=== PATIENT | female | born 1995 | race Caucasian/White ===

== ENCOUNTER → 2019-08-07 | Outpatient (CLI) | payer MEDICAID ==
--- NOTE | 2019-08-07 15:46 | RADIOLOGY REPORT (SQ) ---
EXAM DESCRIPTION: U/S [id number] TRNABD 1GES W/ODOP COMPLETED DATE/TIME: 08/07/2019 3:10 pm REASON FOR STUDY: Z34.81 ENCOUNTER FOR SUPRVSN OF NORMAL , FIRST TRIMESTER Z34.81 ENCOUNTE R FOR SUPRVSN OF NORMAL , FIRST TRIM COMPARISON: None. TECHNIQUE: Transvaginal static and realtime grayscale images acquired of the pelvis. Additional carolina cted spectral and color Doppler images recorded. All images stored on PACs. CG: Not available. CLINICAL DATES: LMP 05/29/2019. 10 weeks 0 days. LIMITATIONS: None. FINDINGS: FETUS: Single Living intrauterine . ULTRASOUND EGA: 5 weeks 6 days. ULTRASOUND RACHEL: 04/02/2020 EFW: Not applicable less than 20 weeks. CRL: 0.31 cm FHR: 73 beats per minute. SURVEY: Too early to assess. AMNIOTIC FLUID: Adequate amount. PLACENTA: Not yet developed due to early gestation. SUBCHORIONIC BLEED: No SIZE OF BLEED: Not applicable. UTERUS: No masses. No anomalies. CERVICAL LENGTH: 2.4 cm. Closed. RIGHT ADNEXA: Normal ovary with normal vascular flow. 3.5 x 2.3 x 1.9 cm. There is a complex cystic area measuring 18 mm. No adnexal free fluid. No adnexal masses. LEFT ADNEXA: Normal ovary with normal vascular flow. 2.1 x 1.5 x 1.9 cm. No adnexal free fluid. No adnexal masses. FREE FLUID: None. OTHER: No other significant finding. IMPRESSION: Intrauterine with low heart rate. EGA 5 weeks 6 days. Trimester of : First trimester - 0 to 13 weeks. TECHNICAL DOCUMENTATION: JOB ID: [id number] [employer]- All Rights Reserved rev-12/02 Reading location - IP/workstation name: [email or web address]
== END ==
LOC: RAD 14:26
PROVIDERS: ATTEND Midwife
DX: Z34.81 Encounter for supervision of other normal pregnancy, first trimester (principal)
CPT/HCPCS: 76801

== ENCOUNTER 2019-09-10 10:14 | Emergency (ER) | payer MEDICAID ==
[2019-09-10 10:44] VITALS: BP 127/72
--- NOTE | 2019-09-10 11:03 | ER Document Report ---
ED Medical Screen (RME) - General Chief Complaint: Chest Pain Stated Complaint: CHEST PAIN Time Seen by Provider: 09/10/19 10:47 Primary Care Provider: VIVIANE ALBARADO CNM [Primary Care Provider] - Follow up as needed Notes: Patient is a 24-year-old female who presents to the emergency department with a chief complaint of chest pain. Patient is 11 weeks . The pain is in the left side of her chest. Describes as a sharp pain. She also felt random sharp pains in her entire body. Patient does not know if she has any family history of heart attack at a young age. Exam: Sinus rhythm on twelve-lead EKG. S1, S2. Clear breath sounds throughout. I have greeted and performed a rapid initial assessment of this patient. A comprehensive ED assessment and evaluation of the patient, analysis of test results and completion of medical decision making process will be conducted by an additional ED providers. TRAVEL OUTSIDE OF THE [place] IN LAST 30 DAYS: No - Related Data Allergies/Adverse Reactions: No Known Allergies Allergy (Verified 09/10/19 10:46) Home Medications: prenatals Past Medical History - Social History Frequency of alcohol use: None Drug Abuse: None Physical Exam - Vital signs Vitals: Temp Pulse Resp BP Pulse Ox 98.7 F 72 17 127/72 H 98 09/10/19 10:42 09/10/19 10:42 09/10/19 10:42 09/10/19 10:42 09/10/19 10:42 Course - Vital Signs Vital signs: Temp Pulse Resp BP Pulse Ox 98.7 F 72 17 127/72 H 98 09/10/19 10:42 09/10/19 10:42 09/10/19 10:42 09/10/19 10:42 09/10/19 10:42 Doctor's Discharge - Discharge Referrals: VIVIANE ALBARADO CNM [Primary Care Provider] - Follow up as needed
[2019-09-10 11:41] LABS: ABSOLUTE EOSINOPHILS # (AUTO) 0.1 10^3/uL (0.0-0.6); ABSOLUTE LYMPHOCYTES (AUTO) 2.1 10^3/uL (0.5-4.7); ABSOLUTE MONOCYTES (AUTO) 0.5 10^3/uL (0.1-1.4); ABSOLUTE NEUT (AUTO) 6.9 10^3/uL (1.7-8.2); BASOPHILS % (AUTO) 0.2 % (0-2); HEMATOCRIT 39.7 % (36.0-47.0); HEMOGLOBIN 13.6 g/dL (12.0-15.5); LYMPHOCYTES % (AUTO) 21.7 % (13-45); MEAN CORPUSCULAR HEMOGLOBIN 29.3 pg (27.0-33.4); MEAN CORPUSCULAR HGB CONC 34.4 g/dL (32.0-36.0); MEAN CORPUSCULAR VOLUME 85 fl (80-97); MONOCYTES % (AUTO) 5.2 % (3-13); PLATELET COUNT 266 10^3/uL (150-450); RED BLOOD COUNT 4.66 10^6/uL (3.72-5.28); RED CELL DISTRIBUTION WIDTH 14.7 % (11.5-14.0); SEGMENTED NEUTROPHILS % (AUTO) 71.9 % (42-78); TOTAL CELLS COUNTED % (AUTO) 100 %; WHITE BLOOD COUNT 9.7 10^3/uL (4.0-10.5)
--- NOTE | 2019-09-10 11:52 | RADIOLOGY REPORT (SQ) ---
EXAM DESCRIPTION: CHEST SINGLE VIEW COMPLETED DATE/TIME: 09/10/2019 11:42 am REASON FOR STUDY: chest pain COMPARISON: None. EXAM PARAMETERS: NUMBER OF VIEWS: One view. TECHNIQUE: An AP view of the chest was obtained. RADIATION DOSE: NA LIMITATIONS: None. FINDINGS: LUNGS AND PLEURA: No consolidation, pleural effusion or pneumothorax. MEDIASTINUM AND HILAR STRUCTURES: No mediastinal or hilar contour abnormality. HEART AND VASCULAR STRUCTURES: The cardiac silhouette and pulmonary vasculature are within normal main its. BONES: No acute findings. HARDWARE: None in the chest. OTHER: No other finding. IMPRESSION: No acute cardiopulmonary process. TECHNICAL DOCUMENTATION: JOB ID: [id number] 2010 [employer]- All Rights Reserved Reading location - IP/workstation name: [email or web address]
[2019-09-10 11:56] LABS: ALBUMIN 4.3 g/dL (3.5-5.0); ALKALINE PHOSPHATASE 64 U/L (38-126); ANION GAP 8 (5-19); ASPARTATE AMINO TRANSFERASE 16 U/L (14-36); BILIRUBIN,TOTAL 0.4 mg/dL (0.2-1.3); BLOOD UREA NITROGEN 9 mg/dL (7-20); CARBON DIOXIDE 26 mmol/L (22-30); CHLORIDE 101 mmol/L (98-107); GLUCOSE 85 mg/dL (75-110); POTASSIUM 4.4 mmol/L (3.6-5.0); TOTAL PROTEIN 7.9 g/dL (6.3-8.2)
--- NOTE | 2019-09-10 14:59 | ER Document Report ---
ED General - General Chief Complaint: Chest Pain Stated Complaint: CHEST PAIN Time Seen by Provider: 09/10/19 10:47 Primary Care Provider: VIVIANE ALBARADO CNM [NO LOCAL MD] - Follow up as needed Mode of Arrival: Ambulatory Information source: Patient TRAVEL OUTSIDE OF THE [place] IN LAST 30 DAYS: No - HPI Notes: Patient presents with chest pain. She states this woke her up from sleep this morning. It does feel better now. She states her chest felt tight and she felt somewhat short of breath. She states she has been getting this regularly in the mornings the last several days. She states she is currently 11 weeks . She has no significant past medical history or surgeries. She has never had a blood clot. There is no family history of blood clots and mother father brother sisters. She is not a smoker. She has had no leg swelling. She has had no significant cough or cold. Her chest pain was intermittent. It was a tight sensation. It was mild to moderate. Nothing made it better or worse. It did not radiate. - Related Data Allergies/Adverse Reactions: No Known Allergies Allergy (Verified 09/10/19 10:46) Home Medications: prenatals Past Medical History - General Information source: Patient - Social History Smoking Status: Never Smoker Frequency of alcohol use: None Drug Abuse: None Family History: Reviewed & Not Pertinent Patient has suicidal ideation: No Patient has homicidal ideation: No Review of Systems - Review of Systems Constitutional: denies: Chills, Fever Cardiovascular: Chest pain. denies: Palpitations Respiratory: Cough, Short of breath -: Yes All other systems reviewed and negative Physical Exam - Vital signs Vitals: Temp Pulse Resp BP Pulse Ox 98.7 F 72 17 127/72 H 98 09/10/19 10:42 09/10/19 10:42 09/10/19 10:42 09/10/19 10:42 09/10/19 10:42 Interpretation: Normal - General General appearance: Appears well, Alert - HEENT Head: Normocephalic, Atraumatic Eyes: Normal Pupils: PERRL - Respiratory Respiratory status: No respiratory distress Chest status: Nontender Breath sounds: Normal Chest palpation: Normal - Cardiovascular Rhythm: Regular Heart sounds: Normal auscultation Murmur: No - Abdominal Inspection: Normal Distension: No distension Bowel sounds: Normal Tenderness: Nontender Organomegaly: No organomegaly - Back Back: Normal, Nontender - Extremities General upper extremity: Normal inspection, Nontender, Normal color, Normal ROM, Normal temperature General lower extremity: Normal inspection, Nontender, Normal color, Normal ROM, Normal temperature, Normal weight bearing. No: Nany's sign - Neurological Neuro grossly intact: Yes Cognition: Normal Orientation: AAOx4 Elliott Coma Scale Eye Opening: Spontaneous [place] Coma Scale Verbal: Oriented [place] Coma Scale Motor: Obeys Commands [place] Coma Scale Total: 15 Speech: Normal Motor strength normal: LUE, RUE, LLE, RLE Sensory: Normal - Psychological Associated symptoms: Normal affect, Normal mood - Skin Skin Temperature: Warm Skin Moisture: Dry Skin Color: Normal Course - Re-evaluation Re-evalutation: 09/10/19 15:00 Patient presents with shortness of breath and chest pain. I feel the clinical presentation is most consistent with reflux as it occurs every morning only. Patient does not have any signs on EKG such as an S1Q3T3, of a pulmonary embolism. Patient does not have any unilateral leg swelling. She has no family history or known clotting disorders. There is no evidence that this is cardiac in nature. I have instructed the patient on some things she can do to address reflux and to follow-up with her SILVERING APPLICATOR. - Vital Signs Vital signs: Temp Pulse Resp BP Pulse Ox 98.7 F 72 17 127/72 H 98 09/10/19 10:42 09/10/19 10:42 09/10/19 10:42 09/10/19 10:42 09/10/19 10:42 - Laboratory Result Diagrams: 09/10/19 11:22 09/10/19 11:22 Laboratory results interpreted by me: 09/10/19 09/10/19 11:22 11:22 RDW 14.7 H Sodium 134.9 L - Diagnostic Test Radiology reviewed: Image reviewed, Reports reviewed - EKG Interpretation by Me EKG shows normal: Sinus rhythm Rate: Normal - 76 Rhythm: NSR [place]/QRS: No: Right axis deviation, Left axis deviation Discharge - Discharge Clinical Impression: Chest pain Qualifiers: Chest pain type: unspecified Qualified Code(s): R07.9 - Chest pain, unspecified Condition: Stable Disposition: HOME, SELF-CARE Instructions: Chest Pain of Unclear Cause ([facility]) Additional Instructions: Please follow-up with your SILVERING APPLICATOR as soon as possible. Forms: Return to Work Referrals: DERIK MUIR MD [ACTIVE STAFF] - Follow up in 1 week
--- NOTE | 2019-09-10 18:12 | EKG REPORT ---
SEVERITY:- NORMAL ECG - SINUS RHYTHM : Confirmed by: Racheal Alegria MD 10-Sep-2019 18:11:59
== END 2019-09-10 15:13 | disposition home or self-care (01) ==
LOC: ER 10:14
DX: O26.891 Other specified pregnancy related conditions, first trimester (principal); R07.9 Chest pain, unspecified; R06.02 Shortness of breath; Z3A.11 11 weeks gestation of pregnancy
CPT/HCPCS: 36415; 71045; 80053; 83735; 84484; 85025; 93005; 93010; 99285

== ENCOUNTER 2020-03-26 04:55 | Inpatient (IN) | payer MEDICAID ==
[2020-03-26 05:32] LABS: APPEARANCE,URINE SLIGHTLY-CLOUDY; BILIRUBIN,URINE NEGATIVE (NEGATIVE); COLOR,URINE YELLOW; GLUCOSE, URINE NEGATIVE (NEGATIVE); KETONES,URINE NEGATIVE (NEGATIVE); LEUKOCYTE ESTERASE,URINE NEGATIVE (NEGATIVE); NITRITE,URINE NEGATIVE (NEGATIVE); PROTEIN,URINE NEGATIVE (NEGATIVE); UROBILINOGEN,URINE NEGATIVE mg/dL (<2.0)
[2020-03-26] MEDS ORDERED: RINGERS SOLUTION,LACTATED 1,000 ML IV PRN (05:46)
[2020-03-26] MEDS ORDERED: RINGERS SOLUTION,LACTATED 1,000 ML IV ONE (05:46)
[2020-03-26 05:54] LABS: URINE AMPHETAMINES SCREEN NEGATIVE; URINE BARBITURATES SCREEN NEGATIVE; URINE BENZODIAZEPINES SCREEN NEGATIVE; URINE COCAINE SCREEN NEGATIVE; URINE MARIJUANA (THC) SCREEN NEGATIVE; URINE METHADONE SCREEN NEGATIVE; URINE PHENCYCLIDINE SCREEN NEGATIVE
[2020-03-26] MEDS ORDERED: CEFAZOLIN 2 GM/D5W RTU 2 GM/50 ML RTUPB IV PRN (06:00)
--- NOTE | 2020-03-26 06:19 | Admission Physical ---
Datetime Report Generated by CPN: 03/26/2020 06:19 CURRENT ADMISSION Chief Complaint: Suspected Ruptured Membranes Indication for Induction: Not Applicable Admit Impression : Term, Intrauterine ; Ruptured Membranes; Primary Section Admit Impression- Other: breech presentation verified by bedside ultrasound performed by me ALLERGIES Medication Allergies: No Medication Allergies: No Known Allergies (09/10/2019) Latex: No Latex Allergies Food Allergies: no Environmental Allergies: pollon pet dansder OBSTETRICAL HISTORY EDC: 04/02/2020 00:00 : 2 Para: 0 Term: 0 : 0 SAB: 1 IAB: 0 Ectopic: 0 Livin Cesareans: 0 VBACs: 0 Multiple Births: 0 Gestational Diabetes: No Rh Sensitization: No Incompetent Cervix: No BRENDON: No Infertility: No ART Treatment: No IUGR: No Hx Previous C/S: No Macrosomia: No Hx Loss/Stillborn: No PIH: No Hx : No Placenta Previa/Abruption: No Depression/PP Depression: No PTL/PROM: No Post Hemorrhage: No Current Procedures: Ultrasound SEE RECORDS Alcohol: No Marijuana : No Cocaine: No Other Illicit Drugs: No Cigarettes: Never Smoker. 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 Surgery: No Heart Disease: No Hosp/Surgery: No Autoimmune Disorder: No Anesthetic Complications: No Kidney Disease: Yes Abnormal Pap Smear: No Neuro/Epilepsy: No Psychiatric Disorders: Yes Other Medical Diseases: No Hepatitis/Liver Disease: No Significant Family History: No Varicosities/Phlebitis: No Trauma/Violence : No Thyroid Dysfunction: No Medical History Comments: kidney infection 2015/anxiety aug 2018/asthma as a child/wisdom teeth removed 2010 INFECTIOUS HISTORY Gonorrhea: No Genital Herpes: No Chlamydia: Yes Tuberculosis: No Syphilis: No Hepatitis: No HIV/AIDS Exposure: No Rash or Viral Illness: No HPV: No Infectious History Comments: chlymasia 2017 PHYSICAL EXAM General: Normal HEENT: Normal Neurologic: Normal Thyroid: Normal Heart: Normal Lungs: Normal Breast: Normal Back: Normal Abdomen: Normal Genitourinary Exam: Normal Extremities: Normal DTRs: Normal Pelvic Type: Adequate Vital Signs: Reviewed MEMBRANES Pooling: Positive Membranes: Ruptured Amniotic Fluid Color: Clear FETUS A EGA: 39.0 Monitoring: External US FHR- Baseline: 140 Variability: Moderate 6-25bpm Accelerations: 15X15 Decelerations: None FHR Category: Category I Estimated Weight (gm): 3600 Presentation: Breech Admit Comment: was scheduled for primary c/section tomorrow for malpresentation. will proceed with c/section now. PLANS FOR LABOR AND DELIVERY Labor and Delivery: None Pain Management: Spinal Feeding Preference: Breast Benefit of Breast Feed Discussed: Yes Circumcision: N/A INFORMED CONSENT Signature: with User ID: [email or web address]
[2020-03-26] MEDS ORDERED: CEFAZOLIN 2 GM/D5W RTU 2 GM/50 ML RTUPB IV ONE (06:26)
[2020-03-26] MEDS ORDERED: BUPIVACAINE HCL 0.25 % INJ/PF (2.5 MG/1 ML) 30 ML VIAL ONE (06:41)
[2020-03-26] MEDS ORDERED: FENTANYL CITRATE INJ/PF 100 MCG/2 ML AMPUL ONE (06:41)
[2020-03-26] MEDS ORDERED: ONDANSETRON HCL INJ/PF 4 MG/2 ML SDV ONE (06:41)
[2020-03-26] MEDS ORDERED: GLYCOPYRROLATE INJ 0.4 MG/2 ML VIAL ONE (06:41)
[2020-03-26] MEDS ORDERED: OXYTOCIN/0.9 % SODIUM CHLORIDE 30 UNIT/500 ML RTUINJ ONE (06:41)
[2020-03-26] MEDS ORDERED: OXYTOCIN 10 UNIT/ML VIAL ONE (06:41)
[2020-03-26] MEDS ORDERED: KETOROLAC TROMETHAMINE INJ/PF 30 MG/1 ML SDV ONE (06:41)
[2020-03-26] MEDS ORDERED: MIDAZOLAM 2 MG/2 ML INJ ONE (06:41)
[2020-03-26] MEDS ORDERED: PHENYLEPHRINE HCL INJ/PF 10 MG/1 ML SDV ONE (06:41)
[2020-03-26] MEDS ORDERED: ACETAMINOPHEN 1,000 MG/100 ML RTUPB IV ONE (06:41)
[2020-03-26] MEDS ORDERED: CEFAZOLIN SODIUM 2 GM in DEXTROSE 5%-WATER 50 ML IV PRN (07:00)
[2020-03-26 07:01] LABS: ABSOLUTE LYMPHOCYTES (AUTO) 2.4 10^3/uL (0.5-4.7); ABSOLUTE MONOCYTES (AUTO) 0.9 10^3/uL (0.1-1.4); ABSOLUTE NEUT (AUTO) 10.2 10^3/uL (1.7-8.2); BASOPHILS % (AUTO) 0.2 % (0-2); EOSINOPHILS % (AUTO) 0.2 % (0-6); HEMATOCRIT 29.5 % (36.0-47.0); LYMPHOCYTES % (AUTO) 17.6 % (13-45); MEAN CORPUSCULAR HEMOGLOBIN 27.2 pg (27.0-33.4); MEAN CORPUSCULAR HGB CONC 33.9 g/dL (32.0-36.0); MEAN CORPUSCULAR VOLUME 80 fl (80-97); MONOCYTES % (AUTO) 6.5 % (3-13); PLATELET COUNT 292 10^3/uL (150-450); RED BLOOD COUNT 3.68 10^6/uL (3.72-5.28); RED CELL DISTRIBUTION WIDTH 14.9 % (11.5-14.0); SEGMENTED NEUTROPHILS % (AUTO) 75.5 % (42-78); TOTAL CELLS COUNTED % (AUTO) 100 %; WHITE BLOOD COUNT 13.6 10^3/uL (4.0-10.5)
--- NOTE | 2020-03-26 08:40 | Birth Certificate Data ---
Cert Data Datetime Report Generated by ÓSCAR: 03/26/2020 08:40 CERTIFICATE DATA 47a. Care: Yes (Annotations: Data stored by ÓSCAR on behalf of user) (03/26/2020 05:02:LEATHA Bach) 47b. Date of First Visit: 07/25/2019 00:00 (03/26/2020 05:02:LEATHA Bach) 47c. Date of Last Visit: 03/20/2020 00:00 (03/26/2020 05:02:LEATHA Bach) 47d. Number of Visits: 11 (03/26/2020 05:02:LEATHA Bach) 48a. Number of Prev Live Births: 0 (03/26/2020 05:02:LEATHA Bach) 48b. Now Livin (03/26/2020 05:02:LEATHA Bach) 48c. Live Births Now : 0 (03/26/2020 05:02:QS system process) 48e. Losses: 1 (03/26/2020 05:02:Sarah Bellkymnce, RNC) 48f. Date of Last Preg Loss: 09/15/2016 00:00 (03/26/2020 05:02:Sarah Bellavance, RNC) RISK FACTORS IN THIS 49a. Diabetes: No (03/26/2020 05:02:Sarah Coats RNC) 49b. Hypertension: No (03/26/2020 05:02:Sarah Bellphille, RNC) 49c. Previous Births: 0 (03/26/2020 05:02:Sarah Travise, RNC) 49d. Stillborns: No (03/26/2020 05:02:Sarah Travise, RNC) 49d. IUGR: No (03/26/2020 05:02:Sarah Travise, RNC) 49e. Infertility Treatment: No (03/26/2020 05:02:Sarah Travise RNC) 49f. Previous Cesareans: 0 (03/26/2020 05:02:Sarah Bellavance, RNC) Mother's Height 50b. Height Inches: 65 (03/26/2020 05:10:QS system process) Mother's Weight 51a. Pre- Weight (lbs): 170 (03/26/2020 05:02:LEATHA Bach) 51b. Weight at Delivery (lbs): 222 (03/26/2020 05:56:QS system process) 52. Dt Last Normal Menses Began: 06/15/2019 00:00 (03/26/2020 05:02:LEATHA Bach) Infections Present/Treated 53a. Gonorrhea: No (03/26/2020 05:02:LEATHA Bach) Results this Hospital Visit : Negative (03/26/2020 05:02:LEATHA Bach) 53b. Syphilis: No (03/26/2020 05:02:LEATHA Bach) Results this Hospital Visit: NONREACTIVE (03/26/2020 06:08:QS system process) 53c. Chlamydia: Yes (03/26/2020 05:02:LEATHA Bach) Results this Hospital Visit: Negative (03/26/2020 05:02:LEATHA Bcah) 53d. Hepatitis B: No (03/26/2020 05:02:LEATHA Bach) Results this Hospital Visit: Negative (03/26/2020 05:02:LEATHA Bach) 53e. Hepatitis C: Negative (03/26/2020 05:02:LEATHA Bach) 53h. Mother Tested for HBsAG: Yes (03/26/2020 05:02:LEATHA Bach) 53i. Date Tested: 09/28/2019 00:00 (03/26/2020 05:02:LEATHA Bach) 53j. Test Result: Negative (03/26/2020 05:02:LEATHA Bach) Obstetric Procedures 54a, b, c. Obstetric Procedures: Ultrasound (03/26/2020 05:02:Sarah Coats RNC) Onset of Labor 56a. PROM >12 Hrs: 4.15 (03/26/2020 05:02:QS system process) 57a. Induction of Labor: N/A (03/26/2020 05:02:Tran Poole RN) 57c. Non-Vertex Presentation A: N/A (03/26/2020 05:02:Tran Poole RN) 57d. Steroids - Lung Mat: None (03/26/2020 05:02:Tran Poole RN) 57d. Steroids - Lung Mat: Not Applicable (03/26/2020 05:02:Tran Poole RN) 57g. Moderate/Heavy Meconium: Clear (03/26/2020 05:02:LEATHA Bach) 57h. Intolerance of Labor: Breech Presentation (03/26/2020 05:02:Tran Poole RN) : N/A (03/26/2020 05:02:Tran Poole RN) Method of Delivery 58a. Forceps - Unsuccessful A: N/A (03/26/2020 05:02:Tran Poole RN) 58b. Vacuum - Unsuccessful A: N/A (03/26/2020 05:02:Tran Poole RN) 58c. Presentation at 58c. Presentation at - A : N/A (03/26/2020 05:02:Tran Poole RN) 58c. Presentation at - A : Complete (03/26/2020 05:02:Tran Poole RN) 58c. Presentation at - A : Breech (03/26/2020 05:02:Tran Poole RN) Final Route and Method of Del 58d. Baby A Route/Delivery: (03/26/2020 05:02:Tran Poole RN) 58e. Trial of Labor Attempted: No (03/26/2020 05:02:Tran Poole RN) 58e. Trial of Labor Attempted A: N/A (03/26/2020 05:02:Tran Poole RN) 58e. Trial of Labor Attempted B: N/A (03/26/2020 05:02:Tran Zulema, RN) Maternal Morbidity 59b. 3rd or 4th Degree Lacs: None (03/26/2020 05:02:Tran Zulema, RN) Birthweight Baby A: 3385 (03/26/2020 05:02:Tamiko Cain, RN) 60a. Pounds : 7 (03/26/2020 05:02:QS system process) 60b. Ounces: 7 (03/26/2020 05:02:QS system process) 61. GA at Delivery Baby A: 39.0 (03/26/2020 05:02:Tran Poole RN) : Full Term- 39- 40.6 Weeks (03/26/2020 05:02:QS system process) 62a. 5 Minute Baby A: 9 (03/26/2020 05:02:QS system process)
--- NOTE | 2020-03-26 08:40 | Delivery Summary ---
Del Sum A-C Datetime Report Generated by CPN: 03/26/2020 08:40 DELIVERY PERSONNEL DELIVERY PERSONNEL: [id number] Delivery Doctor:: Martha Graf MD Anesthesiologist:: Jesus Patel MD DOBIE MAN:: Susan Olivares DOBIE MAN Custom Feed Mill Operator Helper:: Tran Poole RN Neonatal Nurse Practitioner:: ROXANNE Williamson Nursery Nurse:: Batsheva De León RN Computer Technologist/CLINICAL STAFF RN: Pamela Gar CST Computer Technologist/CLINICAL STAFF RN: Quin Cruz RN MATERNAL INFORMATION Delivery Anesthesia: Spinal Medications After Delivery: Pitocin 30 Units in 500ml NS/D5W Delivery QBL: 275 Maternal Complications: None LABOR SUMMARY EDC: 04/02/2020 00:00 No. Babies in Womb: 1 Attempted: No LABOR INFORMATION Reason for Induction: Not Applicable Oxytocin: N/A Group B Beta Strep: neg Steroids Given: None Reason Steroids Not Administered: Not Applicable MEMBRANES Membranes Rupture Method: Spontaneous Rupture of Membranes: 03/26/2020 03:30 Length of Rupture (hr): 4.15 Amniotic Fluid Color: Clear Amniotic Fluid Amount: Scant Amniotic Fluid Odor: Normal STAGES OF LABOR Stage 3 hr: 0 Stage 3 min: 1 VAGINAL DELIVERY Episiotomy: None Laceration #1: None Laceration Extension #1: N/A Laceration Repair: Not Applicable CSECTION DELIVERY Primary Indication: Breech Presentation Secondary Indication: N/A CSection Urgency: Non-Scheduled CSection Incidence: Primary Labor: Labor Elective: Nonelective CSection Incision: Lower Uterine Transverse BABY A INFORMATION Delivery Date/Time: 03/26/2020 07:39 Method of Delivery: Nurse Controlled Delivery: No Born in Route : No : N/A Forceps: N/A Vacuum Extraction: N/A Shoulder Dystocia : No PRESENTATION/POSITION BABY A Presentation: Breech Cephalic Presentation: N/A Vertex Position: n/a Breech Presentation: Complete PLACENTA INFORMATION BABY A Placenta Delivery Time : 03/26/2020 07:40 Placenta Method of Delivery: Expressed Placenta Status: Delivered SCORES BABY A Heart Rate 1 min: >100 bpm Resp Effort 1 min: Good Cry Reflex Irritability 1 min: Cough or Sneeze or Pulls Away Muscle Tone 1 min: Active Motion Color 1 min: Blue/Pale SCORE 1 MIN: 8 Heart Rate 5 min: >100 bpm Resp Effort 5 min: Good Cry Reflex Irritability 5 min: Cough or Sneeze or Pulls Away Muscle Tone 5 min: Active Motion Color 5 min: Body Maskell, Extremities Blue SCORE 5 MIN: 9 INFANT INFORMATION BABY A Gestational Age at Delivery: 39.0 Gestational Status: Full Term- 39- 40.6 Weeks Outcome : Liveborn Condition : Stable Infant Sex: Female IDENTIFICATION BABY A Infant Verification Date/Time: 03/26/2020 07:40 ID Band Number: [id number] Mother's Name Verified: Yes Infant RN Verifying Infant: RGrover,RN MMobley,RN WEIGHT/LENGTH BABY A Infant Birthweight (gm): 3385 Weight (lb): 7 Weight (oz): 7 Length (in): 20.00 Infant Length (cm): 50.80 CORD INFORMATION BABY A No. Cord Vessels: 3 Nuchal Cord : Around Neck x1, Loose Suction: Mouth; Nose ASSESSMENT BABY A Infant Complications: Other Infant Complications- Other: breech Physical Findings at Delivery: Within Normal Limits Infant Respirations: Appears Normal Skin to Skin: No Skin to Skin Time (min): 0 Infant Care By: AVELINO Chowdhury Transferred To: Nursery BABY B INFORMATION : N/A
[2020-03-26] MEDS ORDERED: OXYCODONE-ACETAMINOPHEN 5-325 MG TABLET ONE (12:07)
[2020-03-26] MEDS ORDERED: OXYCODONE-ACETAMINOPHEN 5-325 MG TABLET PO PRN (12:15)
[2020-03-26] MEDS ORDERED: ONDANSETRON 4 MG TAB.RAPDIS PO PRN (12:17)
[2020-03-26] MEDS ORDERED: PROMETHAZINE HCL INJ 25 MG/1 ML VIAL IV PRN (12:18)
[2020-03-26] MEDS ORDERED: SIMETHICONE 80 MG TAB.CHEW PO PRN (12:18)
[2020-03-26] MEDS ORDERED: ACETAMINOPHEN 325 MG TABLET PO PRN (12:19)
[2020-03-26] MEDS ORDERED: MEASLES,MUMPS&RUBELLA VACC/PF 0.5 ML VIAL SUBCUT PRN ×2 (12:20→12:43)
[2020-03-26] MEDS ORDERED: ONDANSETRON HCL INJ/PF 4 MG/2 ML SDV IV PRN (12:28)
[2020-03-26] MEDS ORDERED: HYDROMORPHONE HCL INJ/PF 2 MG/ML AMPULE IV PRN (13:43)
[2020-03-26] MEDS ORDERED: HYDROMORPHONE HCL INJ/PF 2 MG/ML AMPULE ONE (13:50)
[2020-03-26] MEDS ORDERED: KETOROLAC TROMETHAMINE INJ/PF 30 MG/1 ML SDV IV SCH (14:00)
[2020-03-26] MEDS: PRENATAL VITAMIN W DHA CAPSULE PO SCH (16:05)
[2020-03-26] MEDS: KETOROLAC TROMETHAMINE INJ/PF 30 MG/1 ML SDV IV SCH (18:35)
[2020-03-26] MEDS: DOCUSATE SODIUM 100 MG CAPSULE PO SCH (18:35)
[2020-03-26] MEDS: OXYCODONE-ACETAMINOPHEN 5-325 MG TABLET PO PRN (22:07)
[2020-03-27] MEDS: KETOROLAC TROMETHAMINE INJ/PF 30 MG/1 ML SDV IV SCH (02:04)
[2020-03-27 05:25] LABS: HEMATOCRIT 23.8 % (36.0-47.0); MEAN CORPUSCULAR HEMOGLOBIN 27.1 pg (27.0-33.4); MEAN CORPUSCULAR HGB CONC 33.3 g/dL (32.0-36.0); MEAN CORPUSCULAR VOLUME 81 fl (80-97); PLATELET COUNT 244 10^3/uL (150-450); RED BLOOD COUNT 2.93 10^6/uL (3.72-5.28); RED CELL DISTRIBUTION WIDTH 15.1 % (11.5-14.0); WHITE BLOOD COUNT 12.2 10^3/uL (4.0-10.5)
[2020-03-27 05:32] LABS: HEMOGLOBIN 7.9 g/dL (12.0-15.5)
[2020-03-27] MEDS: DOCUSATE SODIUM 100 MG CAPSULE PO SCH ×2 (10:10→18:20)
[2020-03-27] MEDS: PRENATAL VITAMIN W DHA CAPSULE PO SCH (10:10)
--- NOTE | 2020-03-27 10:13 | Operative Report ---
Operative Report DATE OF SURGERY: 03/26/20 PREOPERATIVE DIAGNOSIS: IUP @ 39 1/7 wks. Breech presentation, spontaneous rup ture of membranes POSTOPERATIVE DIAGNOSIS: Same OPERATION: Primary low transverse hysterotomy section SURGEON: DERIK MUIR ANESTHESIA: Spinal COMPLICATIONS: None ESTIMATED BLOOD LOSS: 850 cc INTRAOPERATIVE FINDINGS: Female in rancho breech presentation as of and PROCEDURE: PROCEDURE IN DETAIL: The patient was taken to the operating room, prepared and draped in a normal sterile fashion in a supine position with a leftward tilt. A transverse skin incision was made with a scalpel and carried through to the underlying layer of fascia with the same scalpel. The fascia was excised in the midline and extended laterally with Rosalba. The fascia was then dissected from the rectus muscle sharply with Rosalba and the rectus muscle was divided and the peritoneal cavity was entered sharply with the same Metzenbaum. With good visualization of the bladder and the uterus the bladder blade was inserted. The hysterotomy was nicked with a scalpel and extended laterally with surgeon finger fraction. The was then delivered atraumatically utilizing normal breech maneuvers, the nose and mouth were suctioned with a suction bulb, the cord was clamped and cut and handed off to awaiting pediatricians. Cord blood was collected. The placenta was removed manually. The uterus was exteriorized and cleared of clots and debris. The hysterotomy was closed with 0 Monocryl in a running, locked fashion. A second layer of the same suture was used to imbricate to ensure hemostasis. The uterus was returned to the abdomen and peritoneal cavity was cleared of clots and debris. The rectus muscle and peritoneum were repaired with mattress stitch of 2-0 Chromic. The fascia was closed with 0-Vicryl. The subcutaneous layer was closed with plain catgut and the skin was closed with 4-0 Vicryl. The patient tolerated the procedure well. Sponge, lap, and needle counts correct x2 and the patient was taken to recovery in stable condition.
--- NOTE | 2020-03-27 10:35 | PDOC PROGRESS REPORT ---
Subjective-OB Progress Note for:: 03/27/20 Subjective: reports bleeding slowing, pain controlled with current meds. denies needs Physical Exam (OB) Vital Signs: Temp Pulse Resp BP Pulse Ox 98.2 F 79 16 142/79 H 98 03/27/20 08:00 03/27/20 08:00 03/27/20 08:00 03/27/20 08:00 03/27/20 08:00 Intake & Output 03/26/20 03/27/20 03/28/20 06:59 06:59 06:59 Intake Total 2600 Output Total 1800 Balance 800 Weight 101.4 kg - Dressing Removed: No Incision: Dressing - CDI Closure Type: opsite - Maternal Morbidity 59. Maternal Morbidity (serious complications experinced by the mother as sociated with labor and delivery: None of the above - Abdomen Description: Tender, Soft Hernia Present: No Fundal Description: Firm, Midline Fundal Height: u/u - u/2 - Abdominal Distension: No distension - Extremities Lower extremities: Nany's sign - neg Calf: Normal, Nontender Objective-Diagnostic Laboratory: 03/27/20 05:13 03/27/20 05:13 WBC 12.2 H RBC 2.93 L Hgb 7.9 L D Hct 23.8 L MCV 81 MCH 27.1 MCHC 33.3 RDW 15.1 H Plt Count 244 Assessment and Plan(PN) - Time Spent with Patient Time with patient: Less than 15 minutes - Disposition Anticipated Discharge Disposition: Home, Self Care Anticipated Discharge Timeframe: within 48 hours
[2020-03-27] MEDS: IBUPROFEN 800 MG TABLET PO PRN ×2 (11:11→18:20)
[2020-03-27] MEDS: NEOMY/BACITRAC ZN/POLY OINT 15 GM TP SCH (18:20)
[2020-03-27] MEDS: OXYCODONE-ACETAMINOPHEN 5-325 MG TABLET PO PRN (21:37)
[2020-03-28] MEDS: IBUPROFEN 800 MG TABLET PO PRN (06:14)
[2020-03-28] MEDS: PRENATAL VITAMIN W DHA CAPSULE PO SCH (09:12)
[2020-03-28] MEDS: NEOMY/BACITRAC ZN/POLY OINT 15 GM TP SCH (09:12)
[2020-03-28] MEDS: DOCUSATE SODIUM 100 MG CAPSULE PO SCH (09:12)
--- NOTE | 2020-03-28 12:26 | PDOC DISCHARGE SUMMARY ---
Impression - Admit/DC Date/PCP Admission Date/Primary Care Provider: 03/26/20 05:51 VIRGIE CATES MD Discharge Date: 03/28/20 - Discharge Diagnosis (1) Anemia due to acute blood loss Is this a current diagnosis for this admission?: Yes (2) Breech presentation delivered Is this a current diagnosis for this admission?: Yes (3) delivery delivered Is this a current diagnosis for this admission?: Yes (4) SROM (spontaneous rupture of membranes) Is this a current diagnosis for this admission?: Yes - Additional Information Resuscitation Status: Full Code Discharge Diet: Regular Discharge Activity: Balance Activity w/Rest, No Lifting Over 10 Pounds, No Lifting/Push/Pulling, Non-Ambulatory Child, Pelvic Rest, No tub bath Referrals: VIRGIE CATES MD [Primary Care Provider] - Prescriptions: Oxycodone HCl/Acetaminophen [Percocet 5-325 mg Tablet] 1 tab PO Q4HP PRN #30 tablet PRN Reason: For Pain Scale 3-5 Ibuprofen [Motrin 800 mg Tablet] 800 mg PO Q8HP PRN #60 tablet PRN Reason: Home Medications: Calcium Carbonate [Tums Smoothies] 1 tab PO DAILY 03/26/20 Eir580/Iron Fum/Folic/Docusate [ 19 Tablet] 1 tab PO DAILY 03/26/20 Ibuprofen [Motrin 800 mg Tablet] 800 mg PO Q8HP PRN #60 tablet 03/28/20 Oxycodone HCl/Acetaminophen [Percocet 5-325 mg Tablet] 1 tab PO Q4HP PRN #30 tablet 03/28/20 HPI Reason(s) for Admission: Onset of Labor, Ceasarean Section-Primary Admission Note: breech presentation Procedures: NST Intrapartum Procedure(s): : Low Cervical, Transverse Hospital Course 59. Maternal Morbidity (serious complications experinced by the mother associated with labor and delivery: None of the above Results Laboratory Results: WBC 12.2 10^3/uL (4.0-10.5) H 03/27/20 05:13 RBC 2.93 10^6/uL (3.72-5.28) L 03/27/20 05:13 Hgb 7.9 g/dL (12.0-15.5) L D 03/27/20 05:13 Hct 23.8 % (36.0-47.0) L 03/27/20 05:13 MCV 81 fl (80-97) 03/27/20 05:13 MCH 27.1 pg (27.0-33.4) 03/27/20 05:13 MCHC 33.3 g/dL (32.0-36.0) 03/27/20 05:13 RDW 15.1 % (11.5-14.0) H 03/27/20 05:13 Plt Count 244 10^3/uL (150-450) 03/27/20 05:13 Lymph % (Auto) 17.6 % (13-45) 03/26/20 06:08 [place] % (Auto) 6.5 % (3-13) 03/26/20 06:08 Eos % (Auto) 0.2 % (0-6) 03/26/20 06:08 Baso % (Auto) 0.2 % (0-2) 03/26/20 06:08 Absolute Neuts (auto) 10.2 10^3/uL (1.7-8.2) H 03/26/20 06:08 Absolute Lymphs (auto) 2.4 10^3/uL (0.5-4.7) 03/26/20 06:08 Absolute Monos (auto) 0.9 10^3/uL (0.1-1.4) 03/26/20 06:08 Absolute Eos (auto) 0.0 10^3/uL (0.0-0.6) 03/26/20 06:08 Absolute Basos (auto) 0.0 10^3/uL (0.0-0.2) 03/26/20 06:08 Seg Neutrophils % 75.5 % (42-78) 03/26/20 06:08 Urine Color YELLOW 03/26/20 05:00 Urine Appearance SLIGHTLY-CLOUDY 03/26/20 05:00 Urine pH 8.0 (5.0-9.0) 03/26/20 05:00 Ur Specific [place] 1.010 03/26/20 05:00 Urine Protein NEGATIVE mg/dL (NEGATIVE) 03/26/20 05:00 Urine Glucose (UA) NEGATIVE mg/dL (NEGATIVE) 03/26/20 05:00 Urine Ketones NEGATIVE mg/dL (NEGATIVE) 03/26/20 05:00 Urine Blood NEGATIVE (NEGATIVE) 03/26/20 05:00 Urine Nitrite NEGATIVE (NEGATIVE) 03/26/20 05:00 Urine Bilirubin NEGATIVE (NEGATIVE) 03/26/20 05:00 Urine Urobilinogen NEGATIVE mg/dL (<2.0) 03/26/20 05:00 Ur Leukocyte Esterase NEGATIVE (NEGATIVE) 03/26/20 05:00 Urine Ascorbic Acid NEGATIVE (NEGATIVE) 03/26/20 05:00 Membranes Rupture POSITIVE (NEGATIVE) H 03/26/20 05:00 Urine Opiates Screen NEGATIVE 03/26/20 05:00 Urine Methadone Screen NEGATIVE 03/26/20 05:00 Ur Barbiturates Screen NEGATIVE 03/26/20 05:00 Ur Phencyclidine Scrn NEGATIVE 03/26/20 05:00 Ur Amphetamines Screen NEGATIVE 03/26/20 05:00 U Benzodiazepines Scrn NEGATIVE 03/26/20 05:00 Urine Cocaine Screen NEGATIVE 03/26/20 05:00 U Marijuana (THC) Screen NEGATIVE 03/26/20 05:00 RPR NONREACTIVE (NONREACTIVE) 03/26/20 06:08 Blood Type O POSITIVE 03/26/20 06:08 Antibody Screen NEGATIVE 03/26/20 06:08 Plan Plan of Treatment: f/u at [facility] early next week for BP check Pre E precautions incision check next week has Iron supp at Home and stool softener at home Time Spent: Less than 30 Minutes
[2020-03-28 13:23] VITALS: BP 142/79
== END 2020-03-28 14:30 | disposition home or self-care (01) | DRG 787 ==
LOC: LC 04:55 → LR 05:51 → 2S 09:40
PROVIDERS: ADMIT Obstetrics & Gynecology; ATTEND Obstetrics & Gynecology
PROC: 10D00Z1 Extraction of Products of Conception, Low, Open Approach (ICD-10-PCS; principal; 2020-03-26)
DX: O32.1XX0 Maternal care for breech presentation, not applicable or unspecified (principal); D62 Acute posthemorrhagic anemia; O90.81 Anemia of the puerperium; O69.81X0 Labor and delivery complicated by cord around neck, without compression, not applicable or unspecified; Z11.59 Encounter for screening for other viral diseases; Z3A.39 39 weeks gestation of pregnancy; Z37.0 Single live birth
CPT/HCPCS: 1961; 36415; 64486; 76942; 80307; 81005; 84112; 85025; 85027; 86592; 86850; 86900; 86901; 94799; 99140; J0131; J0690; J1170; J1885; J2250; J2370; J2405; J2590; J3010; J3490; J7120